=== PATIENT | male | born 1940 | race Caucasian/White ===

== ENCOUNTER → 2018-08-04 | Outpatient (CLI) | payer MEDICARE, OTHER ==
[~2018-08-04] MED LIST: AMLO10 PO; ENAL10 PO; IBUP400 PO; LEVFLO500; LIDO700A20 TOP; METO25 PO; METPRE4DP PO; Naprosyn500 MG PO; Oxycodone-Apap1 EAC3 PO; Percocet 5-3251 EACH PO; Percocet 7.5-31 EACH PO; Sulfamethoxazo1 EAC4 PO
== END | disposition home or self-care (01) ==
LOC: LAB SHORT 11:45 → LAB EV 11:45
DX: N39.0 Urinary tract infection, site not specified (principal)
CPT/HCPCS: 87077; 87086; 87186

== ENCOUNTER 2018-08-08 13:14 | Emergency (ER) | payer MEDICARE, OTHER ==
[~2018-08-08] VITALS: Ht 160 cm; Wt 86.2 kg
[~2018-08-08 13:14] MED LIST changes: -AMLO10 PO; -ENAL10 PO; -LEVFLO500; -LIDO700A20 TOP; -METO25 PO; -METPRE4DP PO; -Naprosyn500 MG PO; -Oxycodone-Apap1 EAC3 PO; -Percocet 7.5-31 EACH PO; -Sulfamethoxazo1 EAC4 PO
[2018-08-08] MEDS ORDERED: Oxycodone-Apap1 EAC3 PO (14:45)
[2018-08-08] MEDS ORDERED: ENAL10 PO (14:46)
[2018-08-08] MEDS ORDERED: AMLO10 PO (14:46)
[2018-08-08] MEDS ORDERED: Sulfamethoxazo1 EAC4 PO (14:46)
[2018-08-08] MEDS ORDERED: LEVFLO500 (14:46)
[2018-08-08] MEDS ORDERED: METO25 PO (14:47)
[2018-08-08] MEDS ORDERED: Naprosyn500 MG PO (15:06)
[2018-08-08] MEDS ORDERED: METPRE4DP PO (15:06)
[2018-08-08] MEDS ORDERED: Percocet 7.5-31 EACH PO (15:06)
[2018-08-08] MEDS ORDERED: LIDO700A20 TOP (15:08)
== END 2018-08-08 15:34 | disposition home or self-care (01) ==
LOC: ER 13:14
DX: M25.552 Pain in left hip (principal); M54.5 Low back pain; I10 Essential (primary) hypertension; Z87.891 Personal history of nicotine dependence
CPT/HCPCS: 51798; 96372; 99283-25; J1885

== ENCOUNTER → 2019-06-27 | Outpatient (CLI) | payer MEDICARE, OTHER ==
[~2019-06-27] MED LIST changes: +AMLO10 PO; +Aspir 8181 MG; +ENAL10 PO; +HEARTBURN RELI150 M1; +LEVFLO500; +LIDO700A20 TOP; +METO25 PO; +METPRE4DP PO; +Naprosyn500 MG PO; +Oxycodone-Apap1 EAC3 PO; +Percocet 7.5-31 EACH PO; +Sulfamethoxazo1 EAC4 PO
== END | disposition home or self-care (01) ==
LOC: PLD 15:17 → LAB SHORT 15:17
DX: D04.4 Carcinoma in situ of skin of scalp and neck (principal)
CPT/HCPCS: 88305

== ENCOUNTER → 2020-01-14 | Outpatient (CLI) | payer MEDICARE, OTHER | END | disposition home or self-care (01) | LOC: LAB SHORT 13:16 → PLD 13:16 | DX: C44.629 Squamous cell carcinoma of skin of left upper limb, including shoulder (principal) | CPT/HCPCS: 88305 ==

== ENCOUNTER → 2020-07-14 | Outpatient (CLI) | payer MEDICARE, OTHER | END | disposition home or self-care (01) | LOC: PLD 11:28 → LAB SHORT 11:28 | DX: C44.629 Squamous cell carcinoma of skin of left upper limb, including shoulder (principal) | CPT/HCPCS: 88305 ==

== ENCOUNTER 2021-07-14 08:47 | Inpatient (IN) | payer MEDICARE, OTHER ==
[~2021-07-14] VITALS: Ht 160 cm; Wt 85.2 kg
[~2021-07-14 08:47] MED LIST changes: -Aspir 8181 MG; +Aspir 8181 MG PO
[2021-07-14 09:50] LABS: pH Blood Venous 7.43 (7.34-7.37)
[2021-07-14 09:51] LABS: Bicarbonate Venous 23.5 mmol/L (24.0-30.0); PCO2 Venous 34.4 mmHg (38-42)
[2021-07-14 09:54] LABS: BASOPHILS ABSOLUTE AUTO 0.03 K/mm3 (0.00-0.23); BASOPHILS PERCENT AUTO 1 % (0-2); EOSINOPHILS ABSOLUTE AUTO 0.03 K/mm3 (0.00-0.68); EOSINOPHILS PERCENT AUTO 1 % (0-6); Hematocrit 44.7 % (37.0-53.0); Hemoglobin 15.1 g/dL (13.5-17.5); IMMATURE GRAN ABSOLUTE AUTO 0.24 K/mm3 (0.00-0.10); IMMATURE GRAN PERCENT AUTO 4 % (0-1); LYMPHOCYTES ABSOLUTE AUTO 0.81 K/mm3 (0.84-5.20); LYMPHOCYTES PERCENT AUTO 13 % (21-46); MONOCYTES PERCENT AUTO 11 % (4-13); Mean Corpuscular HGB 29.8 pg (26.0-34.0); Mean Corpuscular HGB Conc 33.8 g/dL (31.5-36.5); Mean Corpuscular Volume 88 fL (80-100); Mean Platelet Volume 9.4 fL (9.1-12.4); NEUTROPHILS ABSOLUTE AUTO 4.55 K/mm3 (1.96-9.15); NEUTROPHILS PERCENT AUTO 72 % (41-73); Platelet Count 277 K/mm3 (150-400); RDW Coefficient Variation 13.6 % (11.7-14.2); RDW Standard Deviation 43.8 fL (35.1-46.3); Red Blood Cell Count 5.06 M/mm3 (4.30-5.90); White Blood Cell Count 6.36 K/mm3 (4.00-11.30)
[2021-07-14 10:18] LABS: Anion Gap 5 mmol/L (6-16); Blood Urea Nitrogen 22 mg/dL (8-24); Bun/Creatinine Ratio 23.2 (12.0-20.0); CO2, Blood 25 mmol/L (21-32); Calcium, Blood 9.5 mg/dL (8.5-10.1); Chloride, Blood 109 mmol/L (98-108); Creatinine, Blood 0.95 mg/dL (0.60-1.20); Glomerular Filtration Rate >60 (60-); Glucose, Blood 101 mg/dL (70-99); Magnesium, Blood 2.3 mg/dL (1.6-2.4); Potassium, Blood 3.8 mmol/L (3.5-5.5); Sodium, Blood 139 mmol/L (136-145); Troponin I <0.015 ng/mL (0.000-0.040)
[2021-07-14] MEDS ORDERED: ENALAPRIL MALEA10 M2 PO (11:37)
[2021-07-14] MEDS ORDERED: FLOVENT HFA12 GM INH (11:37)
[2021-07-14] MEDS ORDERED: TRAZ50 PO (11:38)
[2021-07-14] MEDS ORDERED: METOPROLOL TART25 MG PO (11:38)
[2021-07-14] MEDS ORDERED: MEGESTROL ACETA PO (11:38)
[2021-07-14] MEDS ORDERED: ROSUVASTATIN CAL5 MG PO (11:38)
[2021-07-14] MEDS ORDERED: OMEP20ER PO (11:38)
[2021-07-14] MEDS ORDERED: AMLODIPINE BESY10 MG PO (11:39)
[2021-07-14 13:18] LABS: Creatine Kinase MB 1.3 ng/mL (0.0-3.6); Creatine Kinase MB Index 1.5 (0.0-4.0)
[2021-07-14 13:59] LABS: International Normalized Ratio 0.98; Prothrombin Time Results 10.3 Sec (9.7-11.5)
--- NOTE | 2021-07-14 18:52 | NUR ---
SHIFT SUMMARY PT A/O X4 AND COOPERATIVE OF CARE. VSS WITH O2 SATS IN THE 90'S ON 12 L OXYMIZER. PT SATS DROP TO MID-HIGH 80'S WITH EXERTION. PT CALLS APPROPIATLEY. PT UP TO BEDSIDE COMMODE, SATS DROP TO HIGH 80'S. NO REPORT OF CHEST PAIN/PRESSURE WHILE IN PCU UNIT. SOB REPORTED WHEN AMBULATING. PT USES WALKER WHEN UP TO COMMODE. PT EXPRESSED THAT HOSPICE MAY BE WHAT IS BEST FOR PT, WILL FORWARD TO NIGHT NURSE.
[2021-07-15 03:41] LABS: Base Excess Venous -3.1 mmol/L; Bicarbonate Venous 22.7 mmol/L (24.0-30.0); PCO2 Venous 30.5 mmHg (38-42); PO2 Venous 68.7 mmHg (38-42); pH Blood Venous 7.45 (7.34-7.37)
[2021-07-15 03:54] LABS: BASOPHILS PERCENT AUTO 1 % (0-2)
[2021-07-15 04:07] LABS: Hematocrit 41.2 % (37.0-53.0); Hemoglobin 14.4 g/dL (13.5-17.5); Mean Corpuscular HGB 30.3 pg (26.0-34.0); Mean Corpuscular Volume 87 fL (80-100); RDW Coefficient Variation 13.5 % (11.7-14.2); RDW Standard Deviation 43.4 fL (35.1-46.3); Red Blood Cell Count 4.76 M/mm3 (4.30-5.90)
[2021-07-15 04:08] LABS: EOSINOPHILS PERCENT AUTO 0 % (0-6); LYMPHOCYTES PERCENT AUTO 12 % (21-46); MONOCYTES PERCENT AUTO 5 % (4-13); Mean Platelet Volume 9.3 fL (9.1-12.4); NEUTROPHILS PERCENT AUTO 79 % (41-73); Platelet Count 256 K/mm3 (150-400)
[2021-07-15 04:09] LABS: BASOPHILS ABSOLUTE AUTO 0.02 K/mm3 (0.00-0.23); IMMATURE GRAN ABSOLUTE AUTO 0.14 K/mm3 (0.00-0.10); IMMATURE GRAN PERCENT AUTO 4 % (0-1); LYMPHOCYTES ABSOLUTE AUTO 0.38 K/mm3 (0.84-5.20); MONOCYTES ABSOLUTE AUTO 0.17 K/mm3 (0.16-1.47); NEUTROPHILS ABSOLUTE AUTO 2.59 K/mm3 (1.96-9.15)
[2021-07-15 04:31] LABS: Alanine Aminotransfer (ALT/SGP 23 U/L (12-78); Albumin, Blood 2.3 g/dL (3.4-5.0); Albumin/Globulin Ratio 0.6 (0.8-1.8); Alk Phos 44 U/L (50-136); Anion Gap 6 mmol/L (6-16); Aspartate Aminotrans (AST/SGOT 23 U/L (12-37); Bilirubin, Total 0.5 mg/dL (0.1-1.0); Blood Urea Nitrogen 21 mg/dL (8-24); CO2, Blood 21 mmol/L (21-32); Chloride, Blood 112 mmol/L (98-108); Creatinine, Blood 0.81 mg/dL (0.60-1.20); Globulin, Blood 3.9 g/dL (2.2-4.0); Glomerular Filtration Rate >60 (60-); Glucose, Blood 169 mg/dL (70-99); Lactate Dehydrogenase (Ld),Bld 314 U/L (100-240); Magnesium, Blood 2.4 mg/dL (1.6-2.4); Sodium, Blood 139 mmol/L (136-145); Total Protein, Blood 6.2 g/dL (6.4-8.2)
[2021-07-15 04:44] LABS: BAND PERCENT MAN 1 % (0-8); BASOPHILS PERCENT MAN 0 % (0-2); EOSINOPHILS PERCENT MAN 0 % (0-6); LYMPHOCYTES % ATYPICAL MANUAL 1 % (0-0); LYMPHOCYTES ABSOLUTE MAN 0.29 K/mm3 (0.84-5.20); LYMPHOCYTES PERCENT MAN 8 % (21-46); METAMYELOCYTE ABSOLUTE MAN 0.09 K/mm3 (0.00-0.00); METAMYELOCYTE PERCENT MAN 3 % (0-0); MONOCYTES ABSOLUTE MAN 0.19 K/mm3 (0.16-1.47); MONOCYTES PERCENT MAN 6 % (4-13); MYELOCYTE ABSOLUTE MAN 0.06 K/mm3 (0.00-0.00); MYELOCYTE PERCENT MAN 2 % (0-0); NEUTROPHILS ABSOLUTE MAN 2.64 K/mm3 (1.96-9.15); SEG NEUTROPHILS PERCENT MAN 79 % (41-73); TOTAL CELLS COUNTED 100
--- NOTE | 2021-07-15 06:33 | NUR ---
SHIFT SUMMARY PT A/OX3, [place]IMIUT, AND CALLS APPROPRIATELY. ON TELE SR 70'S-90'S. DID GET ANXIOUS DURING THE NIGHT ONE TIME AND STARTED YELLING FOR HELP. PT GOT STUCK IN BLANKETS/GOWN AND SAID HE FELT CLAUSTROPHOBIC; GOT TACHY AROUND 118'S. STABALISED BACK INTO THE SR ONCE CALMED BY THIS RN. PT CONT AND USES BEDSIDE COMMODE, DOES USE BRIEFS. PT STATES HE DRIBBLES. ON 12L OXYMIZER O2 ABOVE 92%, DOES DESAT WITH MILD EXERTION. ON I.V. FLUIDS PER ORDERS. DENIED CHEST PAIN OR CHEST PRESSURE. WAS UPDATED DURING THE BEGINNING OF SHIFT, SAID SHE SPOKE TO PT AND THAT PT WAS EXTREMELY CONCERNED ABOUT HIS OXYGEN NEEDS. PT DID USE CALL LIGHT WHEN NEEDED ANY TYPE OF HELP. EDUCATED PT ON REPOSITIONING AND IMPORTANCE OF PRONING; REFUSED PRONING BUT DID REPOSITION. REFUSED. VSS. NO ACUTE CHANGES T/O THE NIGHT. WILL CONT. WITH PLAN OF CARE.
--- NOTE | 2021-07-15 09:07 | NUR ---
ASSUMPTION OF CARE NOTE PT ALERT AND ORIENTED X 4. SPO2 93% VIA 12L OXIMIZER. PT DESATURATES WITH EXERTION TO 88-89% BUT RECOVERS QUICKLY. PT SITTING ON EDGE OF BED NOW EATING BREAKFAST. RIGHT AC IV IS PATENT AND WINDOW DRESSING DRY/CLEAN/INTACT. PT COMPLAINED OF INCONTINENCE IN BRIEFS AND DIFFICULTY USING URINAL BUT REPORTED WILL ASK FOR HELP IF NEEDED. CALL LIGHT IN REACH, WILL CONTINUE TO MONITOR.
--- NOTE | 2021-07-15 12:42 | NUR ---
Per chart review, pt. not yet appropriate for discharge. Called and provided his Pennie with an update on his condition. We also discussed needs at home. Pt. was requiring quite a bit of assistance at home from Pennie. She was concerned about his level of frustration and that he mentioned giving up this morning. This is consistent with Dr. Chance's notes. We discussed patient's request for hospice care. Pennie talked with Mr. Salazar this morning and they agreed that he will wait to see how he is feeling over the next few days. We will continue to work towards establishing a discharge plan. A huge aspect of that will be recommendations from PT/OT. I provided my contact number to Pennie and advised that she is welcome to call me for updates and with questions. Anticipate needs at time of discharge to include: PT/OT Eval, home O2 eval (has O2 at home), HH/Hospice vs. SNF dependent upon progress in hospital and patient wishes, hospital F/U within 5-7 days post discharge.
--- NOTE | 2021-07-15 15:08 | NUR ---
TRANSFER NOTE PT LEFT ROOM APPROX. 1220. REPORT GIVEN TO ISMAEL LINDSEY RN. PT TRANFERED VIA WHEELCHAIR. 12 L VIA OXIMIZER UTILIZED, NO SOB NOTED. NS ALSO INFUSING PER EMAR ORDERS. PT APPEARED APPEARED COMFORTABLE ONCE SETTLED INTO BED ON MEDICAL FLOOR AND DIVID RN AT BEDSIDE.
--- NOTE | 2021-07-15 19:24 | NUR ---
Shift Summary, This patient was transfered to the medical floor this afternoon. The patient is A/OX4 to person, place, time and event. The patient is on high flow NC 12lpm and he has coarse lung sounds in the bases. The patient spo2>90% but desaturates with exertion. The patient refuses to use the BSC and wants to use the bathroom even though he desats and is weak. He is a 1 prsn assist to the bathroom but may need breaks inbetween. The patient worked with PT/OT this afternoon. The patient has been resting in bed but is on the side of the bed for meals. The patient is currently lying in bed resting.
[2021-07-16 04:49] LABS: Hemoglobin 14.6 g/dL (13.5-17.5); Mean Corpuscular HGB 30.5 pg (26.0-34.0); Mean Corpuscular HGB Conc 34.8 g/dL (31.5-36.5); Mean Corpuscular Volume 88 fL (80-100); Platelet Count 299 K/mm3 (150-400); RDW Coefficient Variation 13.4 % (11.7-14.2); RDW Standard Deviation 43.1 fL (35.1-46.3); Red Blood Cell Count 4.78 M/mm3 (4.30-5.90); White Blood Cell Count 6.87 K/mm3 (4.00-11.30)
[2021-07-16 04:52] LABS: Base Excess Venous -2.2 mmol/L; PCO2 Venous 35.8 mmHg (38-42); PO2 Venous 87.4 mmHg (38-42); pH Blood Venous 7.41 (7.34-7.37)
[2021-07-16 05:12] LABS: BASOPHILS PERCENT MAN 0 % (0-2); EOSINOPHILS PERCENT MAN 0 % (0-6); LYMPHOCYTES ABSOLUTE MAN 0.48 K/mm3 (0.84-5.20); LYMPHOCYTES PERCENT MAN 7 % (21-46); METAMYELOCYTE ABSOLUTE MAN 0.06 K/mm3 (0.00-0.00); METAMYELOCYTE PERCENT MAN 1 % (0-0); MONOCYTES ABSOLUTE MAN 0.41 K/mm3 (0.16-1.47); MONOCYTES PERCENT MAN 6 % (4-13); MYELOCYTE ABSOLUTE MAN 0.06 K/mm3 (0.00-0.00); MYELOCYTE PERCENT MAN 1 % (0-0); NEUTROPHILS ABSOLUTE MAN 5.83 K/mm3 (1.96-9.15); SEG NEUTROPHILS PERCENT MAN 85 % (41-73); TOTAL CELLS COUNTED 100
[2021-07-16 05:15] LABS: Anion Gap 8 mmol/L (6-16); Blood Urea Nitrogen 23 mg/dL (8-24); CO2, Blood 22 mmol/L (21-32); Calcium, Blood 9.4 mg/dL (8.5-10.1); Chloride, Blood 108 mmol/L (98-108); Creatinine, Blood 0.74 mg/dL (0.60-1.20); Glomerular Filtration Rate >60 (60-); Glucose, Blood 160 mg/dL (70-99); Lactate Dehydrogenase (Ld),Bld 315 U/L (100-240); Magnesium, Blood 2.3 mg/dL (1.6-2.4); Sodium, Blood 138 mmol/L (136-145)
--- NOTE | 2021-07-16 06:33 | NUR ---
PATIENT IS ALERT AND ORIENTED WITH SOME MINIMAL CONFUSION NOTED. PATIENT DENIES PAIN OR ANY ACUTE DISTRESS. PATIENT NOTED WITH URGENCY TO VOID. PATIENT WAS UP TO USE THE URINAL X5 WITH VERY MINIAL OUTPUT WITH EACH VOID. PATIENT HAS HISTORY OF POSTRATE CANCER. WILL CONTINUE TO MONITOR.
--- NOTE | 2021-07-16 18:13 | NUR ---
PATIENT IS ALERT AND ORIENTED AND COOPERATIVE WITH CARE. ON 10L OXYMIZER AT THIS TIME. CONTINUOUS PULSE OXIMETRY IS IN PLACE AND HAS NOT SHOWN THE PATIENT DESATURATING SINCE PLACED ON 10L AT 1630. THE PATIENT DID BECOME ANXIOUS THIS EVENING AT 1815, HE STATED THAT HE FELT CLAUSTROPHOBIC AND FELT SOB. THE CONTINUOUS PULSE OXIMETRY SHOWED A O2 SATURATION OF 93% ON 10L OXYMIZER. THIS RN TALKED THE PATIENT THROUGH BREATHING AND SET UP A FAN AT THE BEDSIDE. TELEMETRY SHOWED SR AT [address] GILBERT SPOKE WITH THE PATIENT AND HIS DAUGHTER THIS AFTERNOON. WILL CONTINUE TO MONITOR
[2021-07-17 04:53] LABS: Base Excess Venous -1.3 mmol/L; Bicarbonate Venous 23.9 mmol/L (24.0-30.0); PCO2 Venous 33.5 mmHg (38-42); PO2 Venous 144 mmHg (38-42); pH Blood Venous 7.44 (7.34-7.37)
[2021-07-17 05:08] LABS: BASOPHILS ABSOLUTE AUTO 0.03 K/mm3 (0.00-0.23); BASOPHILS PERCENT AUTO 1 % (0-2); EOSINOPHILS PERCENT AUTO 0 % (0-6); Hematocrit 41.7 % (37.0-53.0); Hemoglobin 14.3 g/dL (13.5-17.5); IMMATURE GRAN ABSOLUTE AUTO 0.28 K/mm3 (0.00-0.10); IMMATURE GRAN PERCENT AUTO 4 % (0-1); LYMPHOCYTES ABSOLUTE AUTO 0.42 K/mm3 (0.84-5.20); LYMPHOCYTES PERCENT AUTO 7 % (21-46); MONOCYTES ABSOLUTE AUTO 0.35 K/mm3 (0.16-1.47); MONOCYTES PERCENT AUTO 6 % (4-13); Mean Corpuscular HGB 29.9 pg (26.0-34.0); Mean Corpuscular HGB Conc 34.3 g/dL (31.5-36.5); Mean Corpuscular Volume 87 fL (80-100); Mean Platelet Volume 8.9 fL (9.1-12.4); NEUTROPHILS PERCENT AUTO 83 % (41-73); Platelet Count 322 K/mm3 (150-400); RDW Coefficient Variation 13.1 % (11.7-14.2); RDW Standard Deviation 41.5 fL (35.1-46.3); Red Blood Cell Count 4.78 M/mm3 (4.30-5.90); White Blood Cell Count 6.38 K/mm3 (4.00-11.30)
[2021-07-17 05:39] LABS: Anion Gap 8 mmol/L (6-16); Blood Urea Nitrogen 21 mg/dL (8-24); Bun/Creatinine Ratio 26.8 (12.0-20.0); CO2, Blood 22 mmol/L (21-32); Calcium, Blood 8.7 mg/dL (8.5-10.1); Chloride, Blood 107 mmol/L (98-108); Creatinine, Blood 0.78 mg/dL (0.60-1.20); Glomerular Filtration Rate >60 (60-); Glucose, Blood 148 mg/dL (70-99); Magnesium, Blood 2.6 mg/dL (1.6-2.4); Sodium, Blood 137 mmol/L (136-145)
--- NOTE | 2021-07-17 06:10 | NUR ---
MANAGER SHIP SUMMARY ADMITTED FOR PNA AND COVID. PT IS A FULL CODE. PLAN FOR POSSIBLE DISCHARGE HOME TODAY. PT LIVES [facility] WITH HIS . PT RESTING ON 10L BY OXYMIZER BUT DESATS WHEN AMBULATING TO THE RESTROOM. PT RECOVERS QUICKLY. PT GIVEN ONE DOSE OF HYDRALAZINE FOR HYPERTENSION THIS AM. PT INTERMITTENTLY ANXIOUS THROUGHOUT THE SHIFT. NO OTHER CONCERNS. ISOLATION MAINTAINED.
--- NOTE | 2021-07-17 06:46 | NUR ---
PT STATES "I WANT TO BECAUSE I CAN'T BREATHE." PT HAVING ANXIETY AT THIS TIME. ATTEMPTED TO CALL HOSPITALIST FOR MEDICATION BUT NO ANSWER.
--- NOTE | 2021-07-17 12:27 | NUR ---
Per chart review with Dr. Grey and discussion with patient's Pennie. All agreeable to hospice services for patient. Patient also agreeable with hospice. Discussed benefits of hospice in depth with patient's Pennie. We are working towards a same day hospital discharge/hospice intake on Tuesday. [facility] requested. Nicole with [facility] will be reviewing chart and talking with both patient and Pennie.
--- NOTE | 2021-07-17 14:08 | NUR ---
pt very hard of hearing, he is anxious and drifts off. asks appropriate questions but has trouble tracking conversation. He does ambulate but it is precarious. He is distraught at becoming incontinent of urine. Tolerating oximizer. Some struggles with dry stuffy nose. pt daughter at bedside had many questions she is trying to support patients in planning his care and make sure they have the support they need. we reviewed hospice and what they do and the oprions for caregiver support. plan is home on hospice on tuesday. Daughter thinks the family can come up and help after they recover from covid. updated care support representative. got pt a quilt and nexk pillow for comfort. He is asleep.
--- NOTE | 2021-07-17 17:27 | NUR ---
SHIFT SUMMARY PT IS UP IN BED ON 6L OR 02. HAD SOME ANXIETY AND HYPERVENTILATING THIS AM, RELIEVED BY 1 DOSE OF XANAX PER DEC. HAS BEEN CALM AND RELAXED THE REST OF THE DAY. PALLIATIVE CAME AND SPOKE WITH DAUGHTER AND PT AND DISCUSSED HOSPICE PLANS. PT WILL BE DISCHARGING HOME ON HOSPICE ON TUESDAY.
[2021-07-18 04:51] LABS: Hematocrit 40.1 % (37.0-53.0); Hemoglobin 13.9 g/dL (13.5-17.5); Mean Corpuscular HGB Conc 34.7 g/dL (31.5-36.5); Mean Corpuscular Volume 87 fL (80-100); Platelet Count 330 K/mm3 (150-400); RDW Coefficient Variation 13.2 % (11.7-14.2); RDW Standard Deviation 41.6 fL (35.1-46.3); Red Blood Cell Count 4.63 M/mm3 (4.30-5.90); White Blood Cell Count 5.19 K/mm3 (4.00-11.30)
[2021-07-18 05:17] LABS: BAND PERCENT MAN 3 % (0-8); BASOPHILS PERCENT MAN 0 % (0-2); EOSINOPHILS PERCENT MAN 0 % (0-6); LYMPHOCYTES PERCENT MAN 4 % (21-46); METAMYELOCYTE PERCENT MAN 2 % (0-0); MONOCYTES ABSOLUTE MAN 0.31 K/mm3 (0.16-1.47); MONOCYTES PERCENT MAN 6 % (4-13); NEUTROPHILS ABSOLUTE MAN 4.56 K/mm3 (1.96-9.15); SEG NEUTROPHILS PERCENT MAN 85 % (41-73); TOTAL CELLS COUNTED 100
[2021-07-18 05:29] LABS: Alanine Aminotransfer (ALT/SGP 28 U/L (12-78); Albumin, Blood 2.1 g/dL (3.4-5.0); Albumin/Globulin Ratio 0.7 (0.8-1.8); Alk Phos 39 U/L (50-136); Anion Gap 7 mmol/L (6-16); Aspartate Aminotrans (AST/SGOT 25 U/L (12-37); Blood Urea Nitrogen 24 mg/dL (8-24); CO2, Blood 23 mmol/L (21-32); Calcium, Blood 8.9 mg/dL (8.5-10.1); Chloride, Blood 106 mmol/L (98-108); Globulin, Blood 3.2 g/dL (2.2-4.0); Glomerular Filtration Rate >60 (60-); Glucose, Blood 153 mg/dL (70-99); Sodium, Blood 136 mmol/L (136-145); Total Protein, Blood 5.3 g/dL (6.4-8.2)
--- NOTE | 2021-07-18 07:34 | NUR ---
STEWARD/STEWARDESS SMOKE ROOM SUMMARY ADMITTED FOR PNEUMONIA AND COVID. PT IS FULL CODE. PLAN FOR DISCHARGE HOME ON TUESDAY ON HOSPICE. PT RECEIVING ABX THERAPY AND FINAL DOSE OF REMDESIVIR. NO OTHER CHANGES THIS SHIFT.
--- NOTE | 2021-07-18 13:16 | NUR ---
Spoke with Dr Grey and discussed case. Plan for Pt to D/C with hospice services. Pt is inquiring if he can continue his cancer treatment. Pt may benefit from further education regarding hospice philosophy. Pt resting in bed upon arrival. Pt appears mildly SOB as evidenced by work of breathing when speaking. Pt currenly on 6 LO2 via NC oxymizer. Engaged in therapeutic discussion regarding goals of care. Discussed hospice and encouraged Pt to discuss concerns. Pt inquires about continued treatment of cancer and receiving hospice services. Encouraged Pt to reflect on goals and values. Continued therapeutic listening. After several minutes Pt reports his goal is to pursue hospice and does not want to continue treatment for his cancer. Pt expresses appreciation of visit and reports no other concerns at this time. Palliative Care will remain available.
--- NOTE | 2021-07-18 18:02 | NUR ---
SHIFT SUMMARY NO CHANGES THIS SHIFT. PT STILL EXPECTED TO DC TUESDAY HOME ON HOSPICE. WILL CONTINUE TO MONITOR.
[2021-07-19 05:00] LABS: Hematocrit 40.3 % (37.0-53.0); Hemoglobin 13.9 g/dL (13.5-17.5); Mean Corpuscular HGB 29.8 pg (26.0-34.0); Mean Corpuscular HGB Conc 34.5 g/dL (31.5-36.5); Mean Corpuscular Volume 87 fL (80-100); Mean Platelet Volume 9.1 fL (9.1-12.4); NRBC ABSOLUTE 0.02 K/mm3 (0.00-0.02); NRBC Auto 0.3 /100 WBC (0.0-0.2); Platelet Count 339 K/mm3 (150-400); RDW Coefficient Variation 13.2 % (11.7-14.2); RDW Standard Deviation 41.4 fL (35.1-46.3); Red Blood Cell Count 4.66 M/mm3 (4.30-5.90); White Blood Cell Count 6.48 K/mm3 (4.00-11.30)
[2021-07-19 05:24] LABS: BAND PERCENT MAN 3 % (0-8); BASOPHILS PERCENT MAN 0 % (0-2); EOSINOPHILS ABSOLUTE MAN 0.06 K/mm3 (0.00-0.68); EOSINOPHILS PERCENT MAN 1 % (0-6); LYMPHOCYTES ABSOLUTE MAN 0.19 K/mm3 (0.84-5.20); LYMPHOCYTES PERCENT MAN 3 % (21-46); METAMYELOCYTE ABSOLUTE MAN 0.06 K/mm3 (0.00-0.00); METAMYELOCYTE PERCENT MAN 1 % (0-0); MONOCYTES ABSOLUTE MAN 0.38 K/mm3 (0.16-1.47); MONOCYTES PERCENT MAN 6 % (4-13); MYELOCYTE ABSOLUTE MAN 0.06 K/mm3 (0.00-0.00); MYELOCYTE PERCENT MAN 1 % (0-0); SEG NEUTROPHILS PERCENT MAN 85 % (41-73); TOTAL CELLS COUNTED 100
[2021-07-19 05:46] LABS: Alanine Aminotransfer (ALT/SGP 26 U/L (12-78); Albumin/Globulin Ratio 0.7 (0.8-1.8); Alk Phos 37 U/L (50-136); Anion Gap 6 mmol/L (6-16); Aspartate Aminotrans (AST/SGOT 19 U/L (12-37); Bilirubin, Total 0.9 mg/dL (0.1-1.0); Blood Urea Nitrogen 23 mg/dL (8-24); CO2, Blood 23 mmol/L (21-32); Calcium, Blood 8.7 mg/dL (8.5-10.1); Chloride, Blood 108 mmol/L (98-108); Creatinine, Blood 0.85 mg/dL (0.60-1.20); Glomerular Filtration Rate >60 (60-); Glucose, Blood 166 mg/dL (70-99); Potassium, Blood 4.1 mmol/L (3.5-5.5); Sodium, Blood 137 mmol/L (136-145)
--- NOTE | 2021-07-19 07:55 | NUR ---
NO CHANGES THROUGH NIGHT. PT CONTINUES TO CALL APPROPRIATELY AND MAKES NO COMPLAINTS. STAFF WILL CONT TO MONITOR.
--- NOTE | 2021-07-19 17:20 | NUR ---
Brief visit this afternoon. Spoke with Dr Grey and discussed case. Spouse is at bedside and has questions regarding hospice. Pt resting in bed upon arrival. Pt reports moderate anxiety. Primary RN aware and will offer xanax. Pt's spouse is at bedside. Offered therapeutic listening and answered questions regarding hospice services. Spouse expresses concerns that Pt often needs more than 5 L O2 and has concerns with Pt's ability to navigate the [address] way to the restroom and having the cord be a trip hazard. Suggested having the admitting hospice nurse assess Pt's ability to ambulate safely down the [place]. Continued therapeutic listening and answered questions. Pt and spouse express appreciation and report no other concerns at this time. Palliative Care will remain available.
--- NOTE | 2021-07-19 17:38 | NUR ---
SHIFT SUMMARY PT HAS HAD SEVERAL ANXIOUS ATTACKS TODAY AND WAS MEDICATED PER MAR. DR. STUART INVITED HIS IN EARLY TO BE WITH HIM TO CALM HIM AND STI WITH HIM. PT'S MOOD IMPROVED DRASTICALLY. HE IS NOW RESTING AND CHATTING WITH ON 4L 02 . PLANS ARE STILL TO DISCHARGE TOMORROW PM. WILL CONTINUE TO MONITOR.
[2021-07-20 04:49] LABS: BASOPHILS ABSOLUTE AUTO 0.04 K/mm3 (0.00-0.23); BASOPHILS PERCENT AUTO 0 % (0-2); EOSINOPHILS ABSOLUTE AUTO 0.03 K/mm3 (0.00-0.68); EOSINOPHILS PERCENT AUTO 0 % (0-6); Hematocrit 39.6 % (37.0-53.0); Hemoglobin 13.6 g/dL (13.5-17.5); IMMATURE GRAN ABSOLUTE AUTO 0.45 K/mm3 (0.00-0.10); IMMATURE GRAN PERCENT AUTO 5 % (0-1); LYMPHOCYTES ABSOLUTE AUTO 0.86 K/mm3 (0.84-5.20); LYMPHOCYTES PERCENT AUTO 9 % (21-46); MONOCYTES ABSOLUTE AUTO 1.06 K/mm3 (0.16-1.47); MONOCYTES PERCENT AUTO 11 % (4-13); Mean Corpuscular HGB Conc 34.3 g/dL (31.5-36.5); Mean Corpuscular Volume 87 fL (80-100); Mean Platelet Volume 9.1 fL (9.1-12.4); NEUTROPHILS ABSOLUTE AUTO 7.35 K/mm3 (1.96-9.15); NEUTROPHILS PERCENT AUTO 75 % (41-73); Platelet Count 348 K/mm3 (150-400); RDW Coefficient Variation 13.2 % (11.7-14.2); RDW Standard Deviation 42.4 fL (35.1-46.3); Red Blood Cell Count 4.53 M/mm3 (4.30-5.90); White Blood Cell Count 9.79 K/mm3 (4.00-11.30)
--- NOTE | 2021-07-20 05:18 | NUR ---
PT REMIANS ALERT ANS ORIENTED, MAKES NO COMPLAINTS OVER NIGHT AND SLEPT WELL. WILL CONT TO MONITOR.
[2021-07-20 05:24] LABS: Alanine Aminotransfer (ALT/SGP 25 U/L (12-78); Albumin/Globulin Ratio 0.6 (0.8-1.8); Alk Phos 35 U/L (50-136); Anion Gap 5 mmol/L (6-16); Aspartate Aminotrans (AST/SGOT 17 U/L (12-37); Bilirubin, Total 0.9 mg/dL (0.1-1.0); Blood Urea Nitrogen 24 mg/dL (8-24); Bun/Creatinine Ratio 29.8 (12.0-20.0); CO2, Blood 25 mmol/L (21-32); Calcium, Blood 8.7 mg/dL (8.5-10.1); Chloride, Blood 106 mmol/L (98-108); Creatinine, Blood 0.81 mg/dL (0.60-1.20); Globulin, Blood 3.1 g/dL (2.2-4.0); Glomerular Filtration Rate >60 (60-); Glucose, Blood 108 mg/dL (70-99); Potassium, Blood 3.8 mmol/L (3.5-5.5); Sodium, Blood 136 mmol/L (136-145); Total Protein, Blood 5.1 g/dL (6.4-8.2)
[2021-07-20] MEDS ORDERED: PRED20 PO (11:29)
[2021-07-20] MEDS ORDERED: MORP20L PO (11:30)
[2021-07-20] MEDS ORDERED: TAMS.4ER PO (11:30)
[2021-07-20] MEDS ORDERED: THERA-D2000 UNIT PO (11:30)
[2021-07-20] MEDS ORDERED: HYOS.125 SL (11:31)
[2021-07-20] MEDS ORDERED: LORA.5 PO (11:31)
--- NOTE | 2021-07-20 11:49 | NUR ---
PATIENT DISCHARGED AT 1145 WITH [facility]
--- NOTE | 2021-07-20 12:15 | NUR ---
pt transitioned to hospice will follow up with .
== END 2021-07-20 11:45 | disposition hospice, home (50) | DRG 177 ==
LOC: ER 08:47 → MEDS 11:22 → PCU 11:22 → MEDS 07-15 12:12 → ENPENDDIS 07-20 09:43 → MEDS 07-20 11:45
PROVIDERS: Family Medicine; Student in an Organized Health Care Education/Training Program; ADMIT Family Medicine
PROC: 8E0ZXY6 Isolation (ICD-10-PCS; principal; 2021-07-14)
PROC: 3E02340 Introduction of Influenza Vaccine into Muscle, Percutaneous Approach (ICD-10-PCS; 2021-07-14)
PROC: XW033E5 Introduction of Remdesivir Anti-infective into Peripheral Vein, Percutaneous Approach, New Technology Group 5 (ICD-10-PCS; 2021-07-14)
PROC: 3E0333Z Introduction of Anti-inflammatory into Peripheral Vein, Percutaneous Approach (ICD-10-PCS; 2021-07-14)
DX: U07.1 COVID-19 (principal); J12.82 Pneumonia due to coronavirus disease 2019; J96.01 Acute respiratory failure with hypoxia; E87.2 Acidosis; Z51.5 Encounter for palliative care; D72.819 Decreased white blood cell count, unspecified; R79.1 Abnormal coagulation profile; R39.11 Hesitancy of micturition; I10 Essential (primary) hypertension; Z23 Encounter for immunization; I25.10 Atherosclerotic heart disease of native coronary artery without angina pectoris; E78.5 Hyperlipidemia, unspecified; M81.0 Age-related osteoporosis without current pathological fracture; K21.9 Gastro-esophageal reflux disease without esophagitis; G47.00 Insomnia, unspecified; Z88.1 Allergy status to other antibiotic agents; Z88.8 Allergy status to other drugs, medicaments and biological substances; Z79.82 Long term (current) use of aspirin; Z79.899 Other long term (current) drug therapy; Z98.890 Other specified postprocedural states; Z85.46 Personal history of malignant neoplasm of prostate; Z85.828 Personal history of other malignant neoplasm of skin; Z95.1 Presence of aortocoronary bypass graft; Z87.891 Personal history of nicotine dependence
CPT/HCPCS: 36415; 71045; 71260; 80048; 80053; 82550; 82553; 82803; 82947; 83615; 83735; 84145; 84484; 85025; 85379; 85610; 85730; 86141; 90686; 93005; 93010; 94640; 94762; 96374; 96375; 97110; 97116; 97162; 97166; 97535; 99285-25; A9270; J0360; J1100; J1650; J2543; J2920; J7030; J7040; Q9967

== ENCOUNTER → 2021-10-21 | Outpatient (CLI) | payer MEDICARE, OTHER ==
[~2021-10-21] MED LIST changes: +AMLODIPINE BESY10 MG PO; +ENALAPRIL MALEA10 M2 PO; +FLOVENT HFA12 GM INH; +HYOS.125 SL; +LORA.5 PO; +MEGESTROL ACETA PO; +METOPROLOL TART25 MG PO; +MORP20L PO; +OMEP20ER PO; +PRED20 PO; +ROSUVASTATIN CAL5 MG PO; +TAMS.4ER PO; +THERA-D2000 UNIT PO; +TRAZ50 PO
== END | disposition home or self-care (01) ==
LOC: LAB SHORT 11:36
DX: D04.39 Carcinoma in situ of skin of other parts of face (principal); D04.22 Carcinoma in situ of skin of left ear and external auricular canal
CPT/HCPCS: 88305

== ENCOUNTER → 2022-01-19 | Outpatient (CLI) | payer MEDICARE, OTHER | END | disposition home or self-care (01) | LOC: LAB SHORT 11:08 | DX: N39.0 Urinary tract infection, site not specified (principal) | CPT/HCPCS: 87077; 87086; 87186 ==

== ENCOUNTER → 2022-10-26 | Outpatient (CLI) | payer MEDICARE, OTHER | LOC: LAB SHORT 14:35 → PLD 14:35 | DX: L72.0 Epidermal cyst (principal) | CPT/HCPCS: 88305 ==

== ENCOUNTER → 2024-06-21 | Outpatient (CLI) | payer MEDICARE, OTHER | LOC: LAB SHORT 17:14 → LAB 17:14 | DX: N39.0 Urinary tract infection, site not specified (principal) | CPT/HCPCS: 87077; 87086; 87186 ==